=== PATIENT | male | born 1980 | race Caucasian/White ===

== ENCOUNTER → 2018-11-30 16:52 | Outpatient (CLI) | payer MEDICAID, SELFPAY ==
[2018-11-30 18:21] LABS: Amphetamine/Metha Screen,Urine Negative ng/mL (<1000); Barbiturates Screen,Urine Negative ng/mL (<200); Benzodiazepines Screen,Urine Negative ng/mL (<200); Cannabinoid Screen,Urine Positive ng/mL (<50); Cocaine Screen,Urine Negative ng/mL (<300); Methadone Screen,Urine Negative ng/mL (<300); Opiate Screen,Urine Negative ng/mL (<300); Phencyclidine Screen,Urine Negative ng/mL (<25)
== END ==
PROVIDERS: Visit Provider Nurse Practitioner Family
DX: F41.9 Anxiety disorder, unspecified (principal)
CPT/HCPCS: 80305

== ENCOUNTER → 2019-03-29 14:01 | Outpatient (CLI) | payer MEDICAID, SELFPAY ==
[2019-03-29 15:07] LABS: Basophils % 0.7 % (0.1-2.0); Eosinophils # 0.1 K/mm3 (0.0-0.4); Eosinophils % 1.7 % (0.1-12.0); Hematocrit 39.3 % (42.0-52.0); Hemoglobin 12.4 g/dL (14.1-18.0); Lymphocytes # 1.4 K/mm3 (0.7-4.5); Lymphocytes % 21.2 % (10-50); Mean Corpuscular HGB Conc 31.6 g/dL (31.8-35.4); Mean Corpuscular Hemoglobin 25.8 pg (27.0-31.2); Mean Corpuscular Volume 81.8 fl (80-94); Mean Platelet Volume 9.3 fl (7.4-10.4); Monocytes # 0.6 K/mm3 (0.1-1.0); Monocytes % 8.6 % (1.7-9.3); Neutrophils # 4.4 K/mm3 (1.8-7.8); Neutrophils % 67.8 % (37.0-80.0); Platelet Count 379 K/mm3 (142-424); Red Blood Count 4.81 M/mm3 (4.60-6.20); White Blood Count 6.6 K/mm3 (4.8-10.8)
[2019-03-29 16:02] LABS: Erythrocyte Sedimentation Rate 35 mm/hr (0-15)
[2019-03-29 16:06] LABS: Anion Gap 12.8 mEq/L (5-15); Blood Urea Nitrogen 21 mg/dL (7-18); C-Reactive Protein 1.7 mg/dL (0.0-0.9); Carbon Dioxide 29 mmol/L (21.0-32.0); Chloride 101 mmol/L (98-107); Creatinine,Serum 0.75 mg/dL (0.70-1.30); Estimated Glomerular Filt Rate 116 ml/min (>60); GFR (African American) 140 ML/MIN (>60); Glucose 82 mg/dL (74-106); Potassium 4.8 mmoL/L (3.5-5.1); Sodium 138 mmol/L (136-145)
== END ==
PROVIDERS: Visit Provider Emergency Medicine
DX: R50.9 Fever, unspecified (principal); W57.XXXA Bitten or stung by nonvenomous insect and other nonvenomous arthropods, initial encounter
CPT/HCPCS: 80048; 85025; 85651; 86140

== ENCOUNTER → 2019-04-19 08:54 | Outpatient (CLI) | payer MEDICAID, SELFPAY ==
[2019-04-19 09:54] LABS: Erythrocyte Sedimentation Rate 5 mm/hr (0-15)
[2019-04-19 10:32] LABS: C-Reactive Protein < 0.2 mg/dL (0.0-0.9)
[2019-04-20 11:09] LABS: RA Latex Turbid. <10.0 IU/mL (0.0-13.9)
[2019-04-20 15:09] LABS: Anti-Centromere B Antibodies <0.2 AI (0.0-0.9); Anti-Jo-1 <0.2 AI (0.0-0.9); Anti-Smith Antibody <0.2 AI (0.0-0.9); Antichromatin Antibodies <0.2 AI (0.0-0.9); Antiscleroderma-70 Antibodies <0.2 AI (0.0-0.9); RNP Antibodies 0.2 AI (0.0-0.9); Sjogren's Anti-SS-A <0.2 AI (0.0-0.9); Sjogren's Anti-SS-B <0.2 AI (0.0-0.9)
[2019-04-21 02:12] LABS: dRVVT 30.2 sec (0.0-47.0)
[2019-04-21 05:18] LABS: Anti-DNA (DS) Ab Qn 2 IU/mL (0-9)
[2019-04-21 05:19] LABS: Anti-Cyclic Citrullinated Pept 2 units (0-19)
[2019-04-21 05:20] LABS: Lupus Reflex Interpretation Comment: (.)
== END ==
PROVIDERS: Visit Provider Emergency Medicine
DX: M25.50 Pain in unspecified joint (principal)
CPT/HCPCS: 36415; 85613; 85651; 86140; 86200; 86225; 86235; 86431

== ENCOUNTER → 2019-06-04 17:58 | Outpatient (CLI) | payer OTHER, SELFPAY ==
[2019-06-04 18:50] LABS: Amphetamine/Metha Screen,Urine Negative ng/mL (<1000); Barbiturates Screen,Urine Negative ng/mL (<200); Benzodiazepines Screen,Urine Positive ng/mL (<200); Cannabinoid Screen,Urine Positive ng/mL (<50); Cocaine Screen,Urine Negative ng/mL (<300); Methadone Screen,Urine Negative ng/mL (<300); Opiate Screen,Urine Negative ng/mL (<300); Phencyclidine Screen,Urine Negative ng/mL (<25)
[2019-06-14 08:30] LABS: Alprazolam Positive (.); Benzodiazepines Positive ng/mL (Cutoff=100); Clonazepam Positive (.); Flurazepam Negative (Cutoff=100); Lorazepam Negative (Cutoff=100); Midazolam Negative (Cutoff=100); Temazepam Negative (Cutoff=100); Triazolam Negative (Cutoff=100)
[2019-06-14 14:28] LABS: Clonazepam Confirm 808 ng/mL (Cutoff=100)
== END ==
PROVIDERS: Visit Provider Emergency Medicine
DX: F41.9 Anxiety disorder, unspecified (principal); Z79.899 Other long term (current) drug therapy
CPT/HCPCS: 80305; 80346

== ENCOUNTER → 2019-08-06 16:48 | Outpatient (CLI) | payer OTHER, SELFPAY ==
[2019-08-06 17:25] LABS: Amphetamine/Metha Screen,Urine Negative ng/mL (<1000); Barbiturates Screen,Urine Negative ng/mL (<200); Benzodiazepines Screen,Urine Positive ng/mL (<200); Cannabinoid Screen,Urine Negative ng/mL (<50); Cocaine Screen,Urine Negative ng/mL (<300); Methadone Screen,Urine Negative ng/mL (<300); Opiate Screen,Urine Negative ng/mL (<300); Phencyclidine Screen,Urine Negative ng/mL (<25)
[2019-08-12 09:14] LABS: Alprazolam Negative (Cutoff=100); Benzodiazepines Negative ng/mL (Cutoff=100); Clonazepam Negative (Cutoff=100); Flurazepam Negative (Cutoff=100); Lorazepam Negative (Cutoff=100); Midazolam Negative (Cutoff=100); Temazepam Negative (Cutoff=100); Triazolam Negative (Cutoff=100)
== END ==
PROVIDERS: Visit Provider Nurse Practitioner Family
DX: Z79.899 Other long term (current) drug therapy (principal)
CPT/HCPCS: 80305; 80346

== ENCOUNTER → 2019-09-10 17:04 | Outpatient (CLI) | payer OTHER, SELFPAY ==
[2019-09-10 19:26] LABS: Amphetamine/Metha Screen,Urine Positive ng/mL (<1000); Barbiturates Screen,Urine Negative ng/mL (<200); Benzodiazepines Screen,Urine Positive ng/mL (<200); Cannabinoid Screen,Urine Negative ng/mL (<50); Cocaine Screen,Urine Negative ng/mL (<300); Methadone Screen,Urine Negative ng/mL (<300); Opiate Screen,Urine Negative ng/mL (<300); Phencyclidine Screen,Urine Negative ng/mL (<25)
[2019-09-26 11:56] LABS: Benzodiazepines POSITIVE
[2019-09-26 11:57] LABS: Alprazolam N; Clonazepam POSITIVE; Clonazepam Confirm 4499; Flurazepam N; Lorazepam N; Midazolam N; Temazepam N; Triazolam N
== END ==
PROVIDERS: Visit Provider Nurse Practitioner Family
DX: F41.9 Anxiety disorder, unspecified (principal)
CPT/HCPCS: 80305; 80346

== ENCOUNTER → 2019-09-24 17:30 | Outpatient (CLI) | payer OTHER, SELFPAY ==
[2019-09-24 18:36] LABS: Amphetamine/Metha Screen,Urine Negative ng/mL (<1000); Barbiturates Screen,Urine Negative ng/mL (<200); Benzodiazepines Screen,Urine Positive ng/mL (<200); Cannabinoid Screen,Urine Negative ng/mL (<50); Cocaine Screen,Urine Negative ng/mL (<300); Methadone Screen,Urine Negative ng/mL (<300); Opiate Screen,Urine Negative ng/mL (<300); Phencyclidine Screen,Urine Negative ng/mL (<25)
[2019-10-03 08:09] LABS: Alprazolam Negative (Cutoff=100); Benzodiazepines Positive ng/mL (Cutoff=100); Clonazepam Positive (.); Flurazepam Negative (Cutoff=100); Lorazepam Negative (Cutoff=100); Midazolam Negative (Cutoff=100); Temazepam Negative (Cutoff=100); Triazolam Negative (Cutoff=100)
[2019-10-03 17:43] LABS: Clonazepam Confirm 1269 ng/mL (Cutoff=100)
== END ==
PROVIDERS: Visit Provider Emergency Medicine
DX: Z79.899 Other long term (current) drug therapy (principal)
CPT/HCPCS: 80305; 80346

== ENCOUNTER → 2021-06-07 17:32 | Outpatient (CLI) | payer OTHER, SELFPAY ==
[2021-06-07 18:36] LABS: Basophils # 0.1 K/mm3 (0-0.2); Basophils % 1.2 % (0.1-2.0); Eosinophils # 0.2 K/mm3 (0.0-0.4); Eosinophils % 2.5 % (0.1-12.0); Hematocrit 40.7 % (42.0-52.0); Hemoglobin 12.9 g/dL (14.1-18.0); Lymphocytes # 2.3 K/mm3 (0.7-4.5); Lymphocytes % 33.7 % (10-50); Mean Corpuscular HGB Conc 31.7 g/dL (31.8-35.4); Mean Corpuscular Hemoglobin 27.2 pg (27.0-31.2); Mean Corpuscular Volume 85.7 fl (80-94); Monocytes # 0.4 K/mm3 (0.1-1.0); Monocytes % 5.7 % (1.7-9.3); Neutrophils # 3.9 K/mm3 (1.8-7.8); Platelet Count 304 K/mm3 (142-424); Red Blood Count 4.76 M/mm3 (4.60-6.20); Red Cell Distribution Width 13.8 % (11.5-17.5); White Blood Count 6.9 K/mm3 (4.8-10.8)
[2021-06-07 19:16] LABS: Alanine Aminotransferase 33 U/L (12-78); Albumin Level 3.9 g/dl (3.5-5.0); Albumin/Globulin Ratio 1.4 (1.1-1.8); Alkaline Phosphatase 81 U/L (38-126); Aspartate Amino Transferase 36 U/L (17-59); Bilirubin,Total 0.3 mg/dl (0.2-1.3); Blood Urea Nitrogen 15 mg/dl (9-20); Calcium 9.1 mg/dl (8.4-10.2); Carbon Dioxide 27 mmol/L (22.0-30.0); Chloride 107 mmol/L (98-107); Chol/HDL Ratio 3.2 (1-3.5); Cholesterol 149 mg/dl (140-200); Estimated Glomerular Filt Rate 106 ml/min (>60); GFR (African American) 128 ML/MIN (>60); Globulin 2.7 g/dL (1.3-3.2); Glucose 133 mg/dl (74-100); HDL Cholesterol 46 mg/dl (40-60); Sodium 141 mmol/L (136-145); Total Protein,Serum 6.6 g/dl (6.3-8.2); Triglycerides 75 mg/dl (30-150); VLDL Cholesterol 15 mg/dL (0-40)
[2021-06-07 19:28] LABS: Direct LDL Cholesterol 93.74 mg/dL (100-129)
[2021-06-07 19:35] LABS: T4 (Thyroxine) 7.5 ug/dl (5.53-11.0)
[2021-06-07 19:36] LABS: 25-OH Vitamin D, Total 41.9 ng/mL (30-100)
[2021-06-07 19:48] LABS: Thyroid Stimulating Hormone 0.76 uIU/mL (0.465-4.68)
== END ==
PROVIDERS: Visit Provider Nurse Practitioner Family
DX: F41.9 Anxiety disorder, unspecified (principal); I10 Essential (primary) hypertension; F17.210 Nicotine dependence, cigarettes, uncomplicated; Z01.89 Encounter for other specified special examinations; Z79.899 Other long term (current) drug therapy
CPT/HCPCS: 80053; 80061; 82306; 84436; 84443; 85025

== ENCOUNTER → 2021-10-10 16:00 | Outpatient (CLI) | payer OTHER, SELFPAY ==
[2021-10-10 21:16] LABS: Amphetamine/Metha Screen,Urine Negative ng/ml (<1000)
[2021-10-10 21:17] LABS: Barbiturates Screen,Urine Negative ng/ml (<200); Benzodiazepines Screen,Urine Positive ng/ml (<200)
[2021-10-10 21:18] LABS: Cannabinoid Screen,Urine Negative ng/ml (<50); Cocaine Screen,Urine Negative ng/ml (<300)
[2021-10-10 21:19] LABS: Methadone Screen,Urine Negative ng/ml (<300)
[2021-10-10 21:20] LABS: Opiate Screen,Urine Negative ng/ml (<300); Phencyclidine Screen,Urine Negative ng/ml (<25)
== END ==
PROVIDERS: Visit Provider Emergency Medicine
DX: Z79.899 Other long term (current) drug therapy (principal)
CPT/HCPCS: 80305

== ENCOUNTER → 2022-01-02 16:00 | Outpatient (CLI) | payer OTHER, SELFPAY ==
[2022-01-02 18:27] LABS: Amphetamine/Metha Screen,Urine Negative ng/ml (<1000)
[2022-01-02 18:28] LABS: Barbiturates Screen,Urine Negative ng/ml (<200); Benzodiazepines Screen,Urine Negative ng/ml (<200)
[2022-01-02 18:29] LABS: Cannabinoid Screen,Urine Negative ng/ml (<50)
[2022-01-02 18:30] LABS: Cocaine Screen,Urine Negative ng/ml (<300); Methadone Screen,Urine Negative ng/ml (<300)
[2022-01-02 18:31] LABS: Opiate Screen,Urine Negative ng/ml (<300)
[2022-01-02 18:32] LABS: Phencyclidine Screen,Urine Negative ng/ml (<25)
== END ==
PROVIDERS: Visit Provider Emergency Medicine
DX: Z79.899 Other long term (current) drug therapy (principal)
CPT/HCPCS: 80305

== ENCOUNTER → 2022-07-05 02:55 | Outpatient (CLI) | payer OTHER, SELFPAY ==
[2022-07-05 18:21] LABS: Phencyclidine Screen,Urine Negative ng/ml (<25)
[2022-07-05 18:22] LABS: Amphetamine/Metha Screen,Urine Negative ng/ml (<1000); Barbiturates Screen,Urine Negative ng/ml (<200)
[2022-07-05 18:23] LABS: Benzodiazepines Screen,Urine Positive ng/ml (<200)
[2022-07-05 18:24] LABS: Cannabinoid Screen,Urine Negative ng/ml (<50); Cocaine Screen,Urine Negative ng/ml (<300)
[2022-07-05 18:25] LABS: Methadone Screen,Urine Positive ng/ml (<300)
[2022-07-05 18:26] LABS: Opiate Screen,Urine Negative ng/ml (<300)
== END ==
PROVIDERS: PCP Emergency Medicine; Visit Provider Emergency Medicine
DX: Z79.899 Other long term (current) drug therapy (principal)
CPT/HCPCS: 80305

== ENCOUNTER → 2022-10-11 13:56 | Outpatient (CLI) | payer OTHER, SELFPAY ==
[2022-10-11 16:34] LABS: Barbiturates Screen,Urine Negative ng/ml (<200); Benzodiazepines Screen,Urine Positive ng/ml (<200)
[2022-10-11 16:35] LABS: Cannabinoid Screen,Urine Negative ng/ml (<50)
[2022-10-11 16:36] LABS: Cocaine Screen,Urine Negative ng/ml (<300)
[2022-10-11 16:37] LABS: Methadone Screen,Urine Positive ng/ml (<300); Opiate Screen,Urine Negative ng/ml (<300)
[2022-10-11 16:38] LABS: Phencyclidine Screen,Urine Negative ng/ml (<25)
[2022-10-20 12:38] LABS: Amphetamine Positive (.); Amphetamine (GC/MS) 8050 ng/mL (Cutoff=500); Amphetamines Positive (.); Methamphetamine Positive (.); Methamphetamine (GC/MS) >3000 ng/mL (Cutoff=500)
== END ==
PROVIDERS: PCP Emergency Medicine; Visit Provider Emergency Medicine
DX: J44.9 Chronic obstructive pulmonary disease, unspecified (principal)
CPT/HCPCS: 80305; 80324

== ENCOUNTER → 2023-01-06 23:18 | Outpatient (CLI) | payer OTHER, SELFPAY ==
[2023-01-06 18:06] LABS: Basophils # 0.1 K/mm3 (0-0.2); Basophils % 0.6 % (0.1-2.0); Eosinophils # 0.2 K/mm3 (0.0-0.4); Eosinophils % 2.9 % (0.1-12.0); Hemoglobin 13.1 g/dL (14.1-18.0); Lymphocytes # 1.9 K/mm3 (0.7-4.5); Lymphocytes % 24.7 % (10-50); Mean Corpuscular HGB Conc 31.8 g/dL (31.8-35.4); Mean Corpuscular Hemoglobin 26.5 pg (27.0-31.2); Mean Corpuscular Volume 83.3 fl (80-94); Mean Platelet Volume 9.5 fl (7.4-10.4); Monocytes # 0.6 K/mm3 (0.1-1.0); Monocytes % 7.5 % (1.7-9.3); Neutrophils # 4.9 K/mm3 (1.8-7.8); Neutrophils % 64.3 % (37.0-80.0); Platelet Count 314 K/mm3 (142-424); Red Blood Count 4.93 M/mm3 (4.60-6.20); Red Cell Distribution Width 13.7 % (11.5-17.5); White Blood Count 7.6 K/mm3 (4.8-10.8)
[2023-01-06 18:20] LABS: Alanine Aminotransferase 18 U/L (12-78); Albumin/Globulin Ratio 1.8 (1.1-1.8); Alkaline Phosphatase 89 U/L (38-126); Anion Gap 15.1 mEq/L (5-15); Aspartate Amino Transferase 23 U/L (17-59); Bilirubin,Total 0.2 mg/dl (0.2-1.3); Blood Urea Nitrogen 14 mg/dl (9-20); Calcium 8.7 mg/dl (8.4-10.2); Carbon Dioxide 27 mmol/L (22.0-30.0); Chloride 100 mmol/L (98-107); Chol/HDL Ratio 3.6 (1-3.5); Cholesterol 145 mg/dl (140-200); Estimated Glomerular Filt Rate 92 ml/min (>60); GFR (African American) 111 ML/MIN (>60); Globulin 2.2 g/dL (1.3-3.2); Glucose 125 mg/dl (74-100); HDL Cholesterol 40 mg/dl (40-60); Potassium 4.1 mmoL/L (3.5-5.1); Sodium 138 mmol/L (136-145); Total Protein,Serum 6.2 g/dl (6.3-8.2); Triglycerides 201 mg/dl (30-150); VLDL Cholesterol 40 mg/dL (0-40)
[2023-01-06 18:31] LABS: Direct LDL Cholesterol 90.77 mg/dL (100-129)
[2023-01-06 18:39] LABS: 25-OH Vitamin D, Total 33.1 ng/mL (30-100); T4 (Thyroxine) 7.5 ug/dl (5.53-11.0)
[2023-01-06 18:53] LABS: Thyroid Stimulating Hormone 0.98 uIU/mL (0.465-4.68)
== END ==
PROVIDERS: PCP Emergency Medicine; Visit Provider Emergency Medicine
DX: I10 Essential (primary) hypertension (principal); R53.83 Other fatigue; F41.9 Anxiety disorder, unspecified; L40.9 Psoriasis, unspecified
CPT/HCPCS: 80053; 80061; 82306; 84436; 84443; 85025